=== PATIENT | male | born 1965 | race African-American/Black ===

== ENCOUNTER → 2019-07-23 | Outpatient (CLI) | payer OTHER ==
[~2019-07-23] MED LIST: CEPHALEXIN 250250 M1 PO; NASONEX17 GM NS; NORCO 5-325 TA1 EACH PO; VALIUM5 MG PO; ZOMIG
== END ==
LOC: CAT 09:19
DX: Z13.6 Encounter for screening for cardiovascular disorders (principal); E78.00 Pure hypercholesterolemia, unspecified; I25.10 Atherosclerotic heart disease of native coronary artery without angina pectoris